=== PATIENT | female | born 1980 | race Caucasian/White ===

== ENCOUNTER 2017-04-21 03:45 | Inpatient (IN) ==
[2017-04-21] MEDS ORDERED: MOM Conc 10 ML UD.LIQ PO PRN (04:17)
[2017-04-21] MEDS ORDERED: *HR* LORazepam 2 MG/ML VIAL IM PRN (04:17)
[2017-04-21] MEDS ORDERED: Ibuprofen 400 MG TABLET PO PRN (04:17)
[2017-04-21] MEDS ORDERED: Mag Hydrox/Al Hydrox/Simeth 30 ML UDC PO PRN (04:17)
[2017-04-21] MEDS ORDERED: hydrOXYzine pamoate 25 MG CAPSULE PO PRN (04:17)
[2017-04-21] MEDS ORDERED: Haloperidol Lactate 5 MG/ML VIAL IM PRN (04:17)
[2017-04-21] MEDS: cephALEXin 500 MG CAPSULE PO SCH ×2 (08:22→20:53)
--- NOTE | 2017-04-21 09:41 | Psychiatry History & Physical ---
Date of Encounter: 04/21/17 Time of Encounter: 09:00 History of Present Illness Patient Stated Chief Complaint: Psychosis and paranoia Medicare Admission Attestation: For traditional Medicare patients the provided hospital inpatient services are reasonable and necessary and in the case of services not specified as inpatient -only under 42 CFR 419.22 (n), that they are appropriately provided as inpatient services in accordance 42 CFR 412.3. For Critical Access Hospital the patient may reasonably be expected to be discharged or transferred to a hospital within 96 hours after admission to the Critical Access Hospital. Admitted From: Hospital to Hospital Transfer ([facility]) History of Present Illness: Ms. Bolivar is a 37 year old female admitted from [facility] in [place] for psychosis and paranoia and agitation. From the records patient was agitated and paranoid and delusional at home and took her to the hospital for evaluation. She had history of schizophrenia and bipolar and has not been taking medication for last several months and did not attend any outpatient follow-up for several months. She had previous hospitalization for similar episodes in the last 2 years. UDS was negative and labs were unremarkable. Patient delusion and paranoia are focused on governments and she believes that someone is trying to control her mind and make her hallucinate. Her speech was disorganized and incoherent at time, it was very difficult to understand her stories and speech. Past Med Surg Social Fam HX - Past Psychiatric History Psychiatric history: Reports: bipolar, schizophrenia, previous psychiatric hospitalization Medications & Allergies cephALEXin [Cephalexin] 500 mg PO BID 04/21/17 [History] Allergies No Known Allergies Allergy (Verified 04/21/17 04:14) Review of Systems Psychiatric: Reports: auditory hallucinations, visual hallucinations, other ( Paranoid delusions) Mental Status Exam Patient orientation: Yes Person, Yes Time, Yes Place Level of alertness: Alert Patient appearance: Appropriate, Well Groomed, Obese Behavior: calm, cooperative, suspicious, talkative Psychomotor activity: Normal Eye contact: Maintains Eye Contact Mood description: Anxious, Labile, Irritable Affect description: congruent with mood, labile, anxious Speech pattern: Disorganized, Rambling, Excessive, Pressured, Other (Incoherent) Speech volume: Normal Thought process: Loose Associations, Flight of Ideas, Disorganized Thought content: No Suicidal ideation, No Homicidal ideation, Yes Overt delusions, Yes Ideas of reference, Yes Paranoid delusion Perceptual disturbances: Yes Reacting to internal stimuli, Yes Auditory hallucinations, Yes Visual hallucinations Attention span: Unable to Focus Memory description: Immediate Impaired, Recent Impaired, Remote Impaired Patient reliability: Not Reliable Historian Intelligence estimate: Average Judgment: Limited Insight: Partial Results - Vital Signs Vital signs: Temp Pulse Resp BP 98.0 F 105 20 149/100 04/21/17 09:00 04/21/17 09:00 04/21/17 09:00 04/21/17 09:00 Assessment and Plan (1) Unspecified psychosis Current visit: Yes Status: Acute Plan: Admit inpatient for safety and stabilization, Close observation, Suicide Precautions per unit protocol, Encourage participation in unit milieu, Group Therapy, Monitor sleep, Monitor appetite Additional Plan: Restart patient on Abilify 10 mg daily. Benefits and side effects were explained to patient, she is agreeable to start. Risks, benefits, side effects, alternatives discussed w/pt: Yes Patient agreeable to treatment: Yes Estimated Length of Stay (Days): 5 Qualifiers: Psychosis type: schizophrenia Schizophrenia type: paranoid schizophrenia Qualified Code(s): F20.0 - Paranoid schizophrenia
[2017-04-21] MEDS: ARIPiprazole 10 MG TABLET PO SCH (10:05)
[2017-04-22] MEDS: cephALEXin 500 MG CAPSULE PO SCH ×2 (08:25→21:12)
[2017-04-22] MEDS: ARIPiprazole 10 MG TABLET PO SCH ×2 (08:25→21:12)
--- NOTE | 2017-04-22 11:22 | Psychiatry Progress Note ---
Date of Encounter: 04/22/17 Time of Encounter: 11:00 Subjective Interval history: Patient is seen for follow-up with nursing staff. Staff report she is medication compliant, seclusive to her room. No reports of agitation. She continue with therapy paranoid and delusional and her speech is incoherent and disorganized. She repeats certain words like hallucination, locked up, hostage , sister's jealous. Nursing staff contacted the mother and she indicated that she was a garden of the patient in the past few years but she does not have a document and planning to obtain a copy from the [facility]. This may help establishing treatments with injectables. Patient is declining any treatment that included shots. Review of Systems Psychiatric: Reports: auditory hallucinations, visual hallucinations, other ( Paranoid delusions) Objective: Exam Patient orientation: Yes Person, Yes Time, Yes Place Level of alertness: Alert Patient appearance: Appropriate, Well Groomed Behavior: calm, cooperative, uncooperative, suspicious Psychomotor activity: Normal Eye contact: Fleeting Contact Mood description: Angry, Anxious, Labile, Irritable Affect description: labile, incongruent with mood Speech pattern: Normal rate, Normal rhythm, Normal tone, Garbled, Pressured Speech volume: Normal Thought process: Loose Associations, Flight of Ideas, Thought Blocking, Disorganized Thought content: No Suicidal ideation, No Homicidal ideation, Yes Overt delusions, Yes Ideas of reference, Yes Preoccupation, Yes Paranoid delusion Perceptual disturbances: Yes Reacting to internal stimuli, No Auditory hallucinations, No Visual hallucinations Judgment: Fair Insight: Partial Results - Vital Signs Vital Signs: Temp Pulse Resp BP 98 F 109 20 148/100 04/22/17 09:00 04/22/17 09:00 04/22/17 09:00 04/22/17 09:00 Assessment and Plan (1) Unspecified psychosis Current visit: Yes Status: Acute Plan: Continue hospitalization, Close observation, Suicide Precautions per unit protocol, Encourage participation in unit milieu, Group Therapy, Monitor sleep, Monitor appetite Risks, benefits, side effects, alternatives discussed w/pt: Yes Patient agreeable to treatment: Yes Qualifiers: Psychosis type: schizophrenia Schizophrenia type: paranoid schizophrenia Qualified Code(s): F20.0 - Paranoid schizophrenia (2) Unspecified psychosis Current visit: Yes Status: Acute Plan: Continue hospitalization, Close observation, Suicide Precautions per unit protocol, Encourage participation in unit milieu, Group Therapy, Monitor sleep, Monitor appetite Additional Plan: We will increase Abilify to 10 mg twice a day. reduce Seroquel to 100 mg at bedtime Risks, benefits, side effects, alternatives discussed w/pt: Yes Patient agreeable to treatment: No Qualifiers: Psychosis type: schizophrenia Schizophrenia type: paranoid schizophrenia Qualified Code(s): F20.0 - Paranoid schizophrenia Consult Discharge Plan - Plan Referrals: NO,PCP [Primary Care Provider] -
[2017-04-23] MEDS: cephALEXin 500 MG CAPSULE PO SCH ×2 (08:34→20:11)
[2017-04-23] MEDS: ARIPiprazole 10 MG TABLET PO SCH ×2 (08:34→20:11)
--- NOTE | 2017-04-23 15:29 | Psychiatry Progress Note ---
Date of Encounter: 04/23/17 Time of Encounter: 15:00 Subjective Interval history: Patient is seen for follow-up with the nursing staff. She continued to display disorganized incoherent speech, she looks irritable and she repeats certain words related to her sister and being locked up and her father. She is compliant with medication and her sleep and appetite are adequate. She self isolated. tobacco farmworker is trying to verify guardianship papers received from the patient and mother. Review of Systems Psychiatric: Reports: auditory hallucinations, visual hallucinations, other ( Paranoid delusions) Objective: Exam Patient orientation: Yes Person, Yes Time, Yes Place Level of alertness: Alert Patient appearance: Appropriate, Well Groomed, Obese Behavior: anxious, uncooperative, suspicious, distractible Psychomotor activity: Increased Eye contact: Minimal Contact Mood description: Anxious, Labile, Irritable Affect description: congruent with mood, labile Speech pattern: Disorganized, Garbled, Pressured Speech volume: Normal Thought process: Tangential, Flight of Ideas, Thought Blocking, Disorganized, Perseveration Thought content: No Suicidal ideation, No Homicidal ideation, Yes Overt delusions, Yes Paranoid delusion Perceptual disturbances: Yes Reacting to internal stimuli, No Auditory hallucinations, No Visual hallucinations Judgment: Fair Insight: Partial Results - Vital Signs Vital Signs: Temp Pulse Resp BP 97.4 F L 91 18 169/91 04/23/17 09:00 04/23/17 09:00 04/23/17 09:00 04/23/17 09:00 Assessment and Plan (1) Unspecified psychosis Current visit: Yes Status: Acute Plan: Continue hospitalization, Close observation, Suicide Precautions per unit protocol, Encourage participation in unit milieu, Group Therapy, Monitor sleep, Monitor appetite Risks, benefits, side effects, alternatives discussed w/pt: Yes Patient agreeable to treatment: Yes Qualifiers: Psychosis type: schizophrenia Schizophrenia type: paranoid schizophrenia Qualified Code(s): F20.0 - Paranoid schizophrenia (2) Unspecified psychosis Current visit: Yes Status: Acute Plan: Continue hospitalization, Close observation, Suicide Precautions per unit protocol, Encourage participation in unit milieu, Group Therapy, Monitor sleep, Monitor appetite Risks, benefits, side effects, alternatives discussed w/pt: Yes Patient agreeable to treatment: No Qualifiers: Psychosis type: schizophrenia Schizophrenia type: paranoid schizophrenia Qualified Code(s): F20.0 - Paranoid schizophrenia Consult Discharge Plan - Plan Referrals: NO,PCP [Primary Care Provider] -
[2017-04-24] MEDS: ARIPiprazole 10 MG TABLET PO SCH ×2 (08:58→20:45)
[2017-04-24] MEDS: cephALEXin 500 MG CAPSULE PO SCH ×2 (08:58→20:45)
--- NOTE | 2017-04-24 15:52 | Psychiatry Progress Note ---
Date of Encounter: 04/24/17 Time of Encounter: 15:00 Subjective Interval history: Patient is seen for follow-up with the nursing staff. She is isolating herself. Compliant with medication. Continue to be paranoid and delusional, speech is disorganized. She believes she is held hostage in the hospital. No guardianship document was found as of now. Received some records from previous hospitalization to review. It will be necessary to request a court hearing for probable cause to continue stabilization. Review of Systems Psychiatric: Reports: auditory hallucinations, visual hallucinations, other ( Paranoid delusions) Objective: Exam Patient orientation: Yes Person, Yes Time, Yes Place Level of alertness: Alert Patient appearance: Appropriate, Well Groomed Behavior: cooperative, uncooperative, guarded, suspicious Psychomotor activity: Increased Eye contact: Minimal Contact Mood description: Angry, Anxious, Labile, Irritable Affect description: congruent with mood, labile Speech pattern: Normal rate, Normal rhythm, Normal tone, Disorganized, Garbled Speech volume: Normal Thought process: Linear, Goal Oriented Thought content: No Suicidal ideation, No Homicidal ideation, No Overt delusions Perceptual disturbances: Yes Reacting to internal stimuli, No Auditory hallucinations, No Visual hallucinations Judgment: Fair Insight: Partial Results - Vital Signs Vital Signs: Temp Pulse Resp BP 97.4 F L 16 16 142/92 04/24/17 10:05 04/24/17 10:05 04/24/17 10:05 04/24/17 10:05 Assessment and Plan (1) Unspecified psychosis Current visit: Yes Status: Acute Risks, benefits, side effects, alternatives discussed w/pt: Yes Patient agreeable to treatment: Yes Qualifiers: Psychosis type: schizophrenia Schizophrenia type: paranoid schizophrenia Qualified Code(s): F20.0 - Paranoid schizophrenia Consult Discharge Plan - Plan Referrals: Mamie Cárdenas [facility] [place] [Outside]
[2017-04-25] MEDS: ARIPiprazole 10 MG TABLET PO SCH ×2 (08:54→20:54)
[2017-04-25] MEDS: cephALEXin 500 MG CAPSULE PO SCH ×2 (08:54→20:54)
--- NOTE | 2017-04-25 16:20 | Psychiatry Progress Note ---
Date of Encounter: 04/25/17 Time of Encounter: 16:00 Subjective Interval history: Patient is seen for follow-up with the nursing staff. She is calm and cooperative and her speech is clear and coherent. She denies any problem with sleep and she is compliant with medication. high worker reported no documented guardianship is available from the court house. Requests for probable cause hearing was submitted to court to continue hospitalization and stabilization. Nursing staff received information regarding patient medication and changes are made including starting Risperdal and discontinue Seroquel. Also we added some Prilosec and atenolol. This was verified with the patient's and she was agreeable to take this medication. She is not displaying any overt paranoia or agitation. Review of Systems Psychiatric: Reports: auditory hallucinations, visual hallucinations, other ( Paranoid delusions) Objective: Exam Patient orientation: Yes Person, Yes Time, Yes Place Level of alertness: Alert Patient appearance: Appropriate, Well Groomed Behavior: calm, cooperative, guarded, distractible Psychomotor activity: Normal Eye contact: Minimal Contact Mood description: Euthymic/stable, Labile Affect description: congruent with mood, constricted Speech pattern: Normal rate, Normal rhythm, Normal tone, Clear Speech volume: Normal Thought process: Linear, Goal Oriented Thought content: No Suicidal ideation, No Homicidal ideation, No Overt delusions Perceptual disturbances: No Auditory hallucinations, No Visual hallucinations Judgment: Fair Insight: Partial Results - Vital Signs Vital Signs: Temp Pulse Resp BP 98.0 F 88 20 149/95 04/25/17 09:00 04/25/17 09:00 04/25/17 09:00 04/25/17 09:00 Assessment and Plan (1) Unspecified psychosis Current visit: Yes Status: Acute Plan: Continue hospitalization, Close observation, Suicide Precautions per unit protocol, Encourage participation in unit milieu, Group Therapy, Monitor sleep, Monitor appetite Risks, benefits, side effects, alternatives discussed w/pt: Yes Patient agreeable to treatment: Yes Qualifiers: Psychosis type: schizophrenia Schizophrenia type: paranoid schizophrenia Qualified Code(s): F20.0 - Paranoid schizophrenia Consult Discharge Plan - Plan Referrals: Mamie Cárdenas [facility] [place] [Outside]
[2017-04-25] MEDS: RisperiDAL 3 MG TABLET PO SCH (20:54)
[2017-04-26] MEDS: ARIPiprazole 10 MG TABLET PO SCH ×2 (09:40→21:54)
[2017-04-26] MEDS: cephALEXin 500 MG CAPSULE PO SCH ×2 (09:40→21:54)
[2017-04-26] MEDS: RisperiDAL 3 MG TABLET PO SCH (21:54)
[2017-04-26] MEDS: *HR* LORazepam 1 MG TABLET PO PRN (21:54)
--- NOTE | 2017-04-27 08:33 | Psychiatry Progress Note ---
Date of Encounter: 04/26/17 Time of Encounter: 15:30 Subjective Interval history: Patient is here for follow-up with the nursing staff. Staff reports she is self isolating, compliant with medication. Denies any problem with sleep or appetite. Still paranoid and delusional. Speech is disorganized and partially incoherent. Medication are updated and explained to patient. She is scheduled for probable cause hearing next week. Review of Systems Psychiatric: Reports: auditory hallucinations, visual hallucinations, other ( Paranoid delusions) Objective: Exam Patient orientation: Yes Person, Yes Time, Yes Place Level of alertness: Alert Patient appearance: Appropriate, Unkempt, Obese Behavior: calm, cooperative, anxious, suspicious Psychomotor activity: Normal Eye contact: Minimal Contact Mood description: Angry, Anxious, Labile, Irritable Affect description: congruent with mood, labile, constricted Speech pattern: Normal rate, Normal rhythm, Normal tone, Disorganized, Garbled Speech volume: Normal Thought process: Linear, Goal Oriented, Flight of Ideas, Thought Blocking, Disorganized Thought content: No Suicidal ideation, No Homicidal ideation, No Overt delusions , Yes Paranoid delusion Perceptual disturbances: Yes Auditory hallucinations, No Visual hallucinations Judgment: Fair Insight: Partial Results - Vital Signs Vital Signs: Temp Pulse Resp BP 98.2 F 77 22 138/79 04/26/17 20:21 04/26/17 20:21 04/26/17 20:21 04/26/17 20:21 Assessment and Plan (1) Unspecified psychosis Current visit: Yes Status: Acute Plan: Continue hospitalization, Close observation, Suicide Precautions per unit protocol, Encourage participation in unit milieu, Group Therapy, Monitor sleep, Monitor appetite Risks, benefits, side effects, alternatives discussed w/pt: Yes Patient agreeable to treatment: Yes Qualifiers: Psychosis type: schizophrenia Schizophrenia type: paranoid schizophrenia Qualified Code(s): F20.0 - Paranoid schizophrenia Consult Discharge Plan - Plan Referrals: Mamie Cárdenas [facility] [place] [Outside]
[2017-04-27] MEDS: cephALEXin 500 MG CAPSULE PO SCH ×2 (09:06→20:07)
[2017-04-27] MEDS: ARIPiprazole 10 MG TABLET PO SCH ×2 (09:06→20:07)
--- NOTE | 2017-04-27 14:36 | Psychiatry Progress Note ---
Date of Encounter: 04/27/17 Time of Encounter: 14:00 Subjective Interval history: Patient is seen for follow-up with the nursing staff. Staff reports she continue to be self isolating in her room, suspicious and paranoid and avoiding interaction with peers and staff. She is compliant with medication, she is improving less irritable and less delusional. Her speech continues to be disorganized and partially and coherent. Review of Systems Psychiatric: Reports: auditory hallucinations, visual hallucinations, other ( Paranoid delusions) Objective: Exam Patient orientation: Yes Person, Yes Time, Yes Place Level of alertness: Alert Patient appearance: Appropriate, Unkempt, Obese Behavior: calm, cooperative, guarded, suspicious Psychomotor activity: Normal Eye contact: Avoids Eye Contact Mood description: Anxious, Labile Affect description: congruent with mood, labile Speech pattern: Normal rate, Normal rhythm, Normal tone, Disorganized, Garbled, Excessive, Pressured, Repetitive Speech volume: Normal Thought process: Flight of Ideas, Thought Blocking, Disorganized Thought content: No Suicidal ideation, No Homicidal ideation, No Overt delusions Perceptual disturbances: Yes Auditory hallucinations, No Visual hallucinations Judgment: Fair Insight: Partial Results - Vital Signs Vital Signs: Temp Pulse Resp BP 97.8 F 73 18 122/80 04/27/17 09:00 04/27/17 09:00 04/27/17 09:00 04/27/17 09:00 - Labs Labs: Laboratory Results - last 24 hr 04/27/17 10:29 TSH 1.358 Assessment and Plan (1) Unspecified psychosis Current visit: Yes Status: Acute Plan: Continue hospitalization, Close observation, Suicide Precautions per unit protocol, Encourage participation in unit milieu, Group Therapy, Monitor sleep, Monitor appetite Risks, benefits, side effects, alternatives discussed w/pt: Yes Patient agreeable to treatment: Yes Qualifiers: Psychosis type: schizophrenia Schizophrenia type: paranoid schizophrenia Qualified Code(s): F20.0 - Paranoid schizophrenia Consult Discharge Plan - Plan Referrals: Mamie Cárdenas [facility] [place] [Outside] (To establish in services, you may walk -in any Sunday through Sunday from 8:00am 12:00pm or 1:00pm 4:00pm. Your case will be opened, and you will be scheduled to see a counselor and psychiatric prescriber. Please bring your insurance card, photo ID and medication list. )
[2017-04-27] MEDS: *HR* LORazepam 1 MG TABLET PO PRN ×2 (16:20→20:07)
[2017-04-27] MEDS: RisperiDAL 3 MG TABLET PO SCH (20:07)
[2017-04-28] MEDS: cephALEXin 500 MG CAPSULE PO SCH ×2 (08:41→20:34)
[2017-04-28] MEDS: ARIPiprazole 10 MG TABLET PO SCH ×2 (08:41→20:34)
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
[2017-04-28] MEDS: *HR* LORazepam 1 MG TABLET PO PRN (20:34)
[2017-04-28] MEDS: RisperiDAL 3 MG TABLET PO SCH (20:34)
[2017-04-28] MEDS: traZODone 50 MG TABLET PO PRN (20:34)
[2017-04-29] MEDS: cephALEXin 500 MG CAPSULE PO SCH ×2 (08:26→20:14)
[2017-04-29] MEDS: ARIPiprazole 10 MG TABLET PO SCH ×2 (08:26→20:14)
--- NOTE | 2017-04-29 13:04 | Psychiatry Progress Note ---
Date of Encounter: 04/29/17 Time of Encounter: 13:00 Subjective Interval history: Albina is seen today for follow-up. She reports that she is worried about not being able to pay her rent. She does not have an issue with any of the medications but is not understanding why she is still here. She is actively thought blocking during the interview and very disorganized at times. She does seem to be less agitated than on her initial presentation and she is able to come out of her room to eat. I did encourage the patient to shower today. Currently compliant with medications. Review of Systems Psychiatric: Reports: auditory hallucinations, visual hallucinations, irritability, other (Paranoid delusions). Denies: suicidal ideation Objective: Exam Patient orientation: Yes Person, Yes Place, Yes Circumstance Level of alertness: Alert Patient appearance: Disheveled Behavior: guarded, suspicious Psychomotor activity: Normal Eye contact: Minimal Contact Mood description: Euthymic/stable Affect description: blunted Speech pattern: Slowed Speech volume: Normal Thought process: Disorganized, Slowed Thinking Thought content: No Suicidal ideation, No Homicidal ideation, Yes Thought insertion Perceptual disturbances: Yes Reacting to internal stimuli, Yes Auditory hallucinations Judgment: Poor Insight: None Results - Vital Signs Vital Signs: Temp Pulse Resp BP 97.2 F L 75 20 123/76 04/29/17 08:45 04/29/17 08:45 04/29/17 08:45 04/29/17 08:45 Assessment and Plan (1) Psychosis Current visit: Yes Status: Acute Plan: Continue hospitalization, Close observation, Suicide Precautions per unit protocol, Encourage participation in unit milieu, Group Therapy, Monitor sleep, Monitor appetite Additional Plan: Continue current meds. Patient's agitation is less. We will continue to monitor to see if she improves. Consider tapering Risperdal or Abilify and increasing the other medication depending on improvement. Risks, benefits, side effects, alternatives discussed w/pt: Yes Patient agreeable to treatment: Yes Qualifiers: Psychosis type: unspecified psychosis type Qualified Code(s): F29 - Unspecified psychosis not due to a substance or known physiological condition Consult Discharge Plan - Plan Referrals: Mamie Cárdenas [facility] [place] [Outside] (To establish in services, you may walk -in any Sunday, Sunday or from 8:00am 12:00pm or 1:00pm 4:00pm. Your case will be opened, and you will be scheduled to see a counselor and psychiatric prescriber. Please bring your insurance card, social security number, photo ID and medication list. )
[2017-04-29] MEDS: RisperiDAL 3 MG TABLET PO SCH (20:13)
[2017-04-29] MEDS: traZODone 50 MG TABLET PO PRN (20:14)
[2017-04-29] MEDS: *HR* LORazepam 1 MG TABLET PO PRN (20:14)
[2017-04-29] MEDS: hydrOXYzine pamoate 25 MG CAPSULE PO PRN (20:14)
[2017-04-30] MEDS: ARIPiprazole 10 MG TABLET PO SCH ×2 (08:27→20:39)
[2017-04-30] MEDS: cephALEXin 500 MG CAPSULE PO SCH ×2 (08:27→20:40)
--- NOTE | 2017-04-30 14:25 | Psychiatry Progress Note ---
Date of Encounter: 04/30/17 Time of Encounter: 14:00 Subjective Interval history: Patient is here for follow-up with the nursing staff. Staff reports she is spending her time in her room by herself, she was observed talking to self loudly and seemed to be internally stimulated. She is compliant with medication. Her speech continued to be disorganized and garbled. Discussed with the treatment team that on discharge she will need case management and other support resources to ensure compliance with treatment. Review of Systems Psychiatric: Reports: auditory hallucinations, visual hallucinations, irritability, other (Paranoid delusions). Denies: suicidal ideation Objective: Exam Patient orientation: Yes Person, Yes Time, Yes Place Level of alertness: Alert Patient appearance: Appropriate, Well Groomed Behavior: calm, cooperative, tearful, suspicious Psychomotor activity: Normal Eye contact: Minimal Contact Mood description: Euthymic/stable, Depressed, Anxious Affect description: congruent with mood, constricted Speech pattern: Normal rate, Normal rhythm, Normal tone, Disorganized, Garbled Speech volume: Normal Thought process: Linear, Goal Oriented, Flight of Ideas, Thought Blocking, Disorganized Thought content: No Suicidal ideation, No Homicidal ideation, No Overt delusions Perceptual disturbances: Yes Reacting to internal stimuli, No Auditory hallucinations, No Visual hallucinations Judgment: Fair Insight: Partial Results - Vital Signs Vital Signs: Temp Pulse Resp BP 97.0 F L 77 16 134/80 04/30/17 09:00 04/30/17 09:00 04/30/17 09:00 04/30/17 09:00 Assessment and Plan (1) Unspecified psychosis Current visit: Yes Status: Acute Plan: Continue hospitalization, Close observation, Suicide Precautions per unit protocol, Encourage participation in unit milieu, Group Therapy, Monitor sleep, Monitor appetite Risks, benefits, side effects, alternatives discussed w/pt: Yes Patient agreeable to treatment: Yes Qualifiers: Psychosis type: schizophrenia Schizophrenia type: paranoid schizophrenia Qualified Code(s): F20.0 - Paranoid schizophrenia Consult Discharge Plan - Plan Referrals: Mamie Cárdenas [facility] [place] [Outside] (To establish in services, you may walk -in any Sunday, Sunday or from 8:00am 12:00pm or 1:00pm 4:00pm. Your case will be opened, and you will be scheduled to see a counselor and psychiatric prescriber. Please bring your insurance card, social security number, photo ID and medication list. )
[2017-04-30] MEDS: Nicotine 2 MG GUM BC PRN (16:56)
[2017-04-30] MEDS: RisperiDAL 3 MG TABLET PO SCH (20:39)
[2017-04-30] MEDS: hydrOXYzine pamoate 25 MG CAPSULE PO PRN (20:39)
[2017-04-30] MEDS: traZODone 50 MG TABLET PO PRN (20:39)
[2017-04-30] MEDS: *HR* LORazepam 1 MG TABLET PO PRN (20:39)
[2017-05-01] MEDS: cephALEXin 500 MG CAPSULE PO SCH (08:25)
[2017-05-01] MEDS: ARIPiprazole 10 MG TABLET PO SCH ×2 (08:25→20:28)
[2017-05-01] MEDS: Venlafaxine XR (24 HR) 75 MG CAP.ER.24H PO SCH (13:06)
--- NOTE | 2017-05-01 14:06 | Psychiatry Progress Note ---
Date of Encounter: 05/01/17 Time of Encounter: 13:45 Subjective Interval history: Patient was seen for follow-up. Staff reports she is displaying depressed mood and tearful at times. She will continue to be internally stimulated and paranoid. She is not agitated. Her speech continued to be garbled. Effexor XR 75 mg was added to her medication benefits and side effects were discussed with the patient and she is agreeable to start. Court hearing for probable cause completed and patient will continue hospitalization to stabilize her on medication. Review of Systems Psychiatric: Reports: auditory hallucinations, visual hallucinations, irritability, other (Paranoid delusions). Denies: suicidal ideation Objective: Exam Patient orientation: Yes Person, Yes Time, Yes Place Level of alertness: Alert Patient appearance: Appropriate, Well Groomed, Obese Behavior: calm, cooperative Psychomotor activity: Normal Eye contact: Fleeting Contact Mood description: Euthymic/stable, Depressed Affect description: congruent with mood, constricted Speech pattern: Normal rate, Normal rhythm, Normal tone, Disorganized, Garbled Speech volume: Normal Thought process: Linear, Goal Oriented, Tangential, Thought Blocking, Disorganized Thought content: No Suicidal ideation, No Homicidal ideation, No Overt delusions , Yes Paranoid delusion Perceptual disturbances: No Auditory hallucinations, No Visual hallucinations Judgment: Fair Insight: Partial Results - Vital Signs Vital Signs: Temp Pulse Resp BP 97.6 F 68 16 132/73 05/01/17 09:00 05/01/17 09:00 05/01/17 09:00 05/01/17 09:00 Assessment and Plan (1) Unspecified psychosis Current visit: Yes Status: Acute Plan: Continue hospitalization, Close observation, Suicide Precautions per unit protocol, Encourage participation in unit milieu, Group Therapy, Monitor sleep, Monitor appetite Additional Plan: We will start Effexor XR 75 mg daily to help patient with depression, benefits and side effects were discussed and we will monitor. Risks, benefits, side effects, alternatives discussed w/pt: Yes Patient agreeable to treatment: Yes Qualifiers: Psychosis type: schizophrenia Schizophrenia type: paranoid schizophrenia Qualified Code(s): F20.0 - Paranoid schizophrenia Consult Discharge Plan - Plan Referrals: Mamie Cárdenas [facility] [place] [Outside] (To establish in services, you may walk -in any Sunday, Sunday or from 8:00am 12:00pm or 1:00pm 4:00pm. Your case will be opened, and you will be scheduled to see a counselor and psychiatric prescriber. Please bring your insurance card, social security number, photo ID and medication list. )
[2017-05-01] MEDS: traZODone 50 MG TABLET PO PRN (20:28)
[2017-05-01] MEDS: hydrOXYzine pamoate 25 MG CAPSULE PO PRN (20:28)
[2017-05-01] MEDS: RisperiDAL 3 MG TABLET PO SCH (20:28)
[2017-05-02] MEDS: Venlafaxine XR (24 HR) 75 MG CAP.ER.24H PO SCH (08:21)
[2017-05-02] MEDS: ARIPiprazole 10 MG TABLET PO SCH ×2 (08:21→20:48)
--- NOTE | 2017-05-02 13:50 | Psychiatry Progress Note ---
Date of Encounter: 05/02/17 Time of Encounter: 13:15 Subjective Interval history: Patient is seen for follow-up with the nursing staff. Staff reports she is coming out of her room and attended some groups but did not participate. She reports good sleep and tolerating medication including Effexor that was added. [place] and affect are brighter, speech is logical more organized. She is not irritable or angry. She is compliant with medication. Review of medication with her and encouraged her to continue treatment after discharge. Discharge planning is ongoing at this time. Review of Systems Psychiatric: Reports: auditory hallucinations, visual hallucinations, irritability, other (Paranoid delusions). Denies: suicidal ideation Objective: Exam Patient orientation: Yes Person, Yes Time, Yes Place Level of alertness: Alert Patient appearance: Appropriate, Well Groomed, Obese Behavior: calm, cooperative Psychomotor activity: Normal Eye contact: Minimal Contact Mood description: Euthymic/stable Affect description: congruent with mood, euthymic, other (Smiling appropriately) Speech pattern: Normal rate, Normal rhythm, Normal tone Speech volume: Normal Thought process: Linear, Goal Oriented, Perseveration Thought content: No Suicidal ideation, No Homicidal ideation, No Overt delusions Perceptual disturbances: No Auditory hallucinations, No Visual hallucinations Judgment: Fair Insight: Partial Results - Vital Signs Vital Signs: Temp Pulse Resp BP 97.5 F L 68 16 135/77 05/02/17 08:37 05/02/17 08:37 05/02/17 08:37 05/02/17 08:37 Assessment and Plan (1) Unspecified psychosis Current visit: Yes Status: Acute Risks, benefits, side effects, alternatives discussed w/pt: Yes Patient agreeable to treatment: Yes Qualifiers: Psychosis type: schizophrenia Schizophrenia type: paranoid schizophrenia Qualified Code(s): F20.0 - Paranoid schizophrenia Consult Discharge Plan - Plan Referrals: Mamie Cárdenas [facility] [place] [Outside] (To establish in services, you may walk -in any Sunday, Sunday or from 8:00am 12:00pm or 1:00pm 4:00pm. Your case will be opened, and you will be scheduled to see a counselor and psychiatric prescriber. Please bring your insurance card, social security number, photo ID and medication list. )
[2017-05-02] MEDS: Nicotine 2 MG GUM BC PRN (17:31)
[2017-05-02] MEDS: hydrOXYzine pamoate 25 MG CAPSULE PO PRN (20:48)
[2017-05-02] MEDS: traZODone 50 MG TABLET PO PRN (20:48)
[2017-05-02] MEDS: RisperiDAL 3 MG TABLET PO SCH (20:48)
[2017-05-03] MEDS: Venlafaxine XR (24 HR) 75 MG CAP.ER.24H PO SCH (08:08)
[2017-05-03] MEDS: ARIPiprazole 10 MG TABLET PO SCH ×2 (08:08→21:29)
--- NOTE | 2017-05-03 13:38 | Psychiatry Progress Note ---
Date of Encounter: 05/03/17 Time of Encounter: 12:30 Subjective Interval history: Patient is seen for follow-up with nursing staff. She denies any problem with sleep or appetite., She denied any side effects of medication. She is anxious to go and take care of housework. She is not displaying any overt psychosis or paranoia. She is not internally stimulated and her speech is more organized. Review of Systems Psychiatric: Reports: auditory hallucinations, visual hallucinations, irritability, other (Paranoid delusions). Denies: suicidal ideation Objective: Exam Patient orientation: Yes Person, Yes Time, Yes Place Level of alertness: Alert Patient appearance: Appropriate, Well Groomed, Obese Behavior: calm, cooperative, guarded Psychomotor activity: Normal Eye contact: Minimal Contact Mood description: Euthymic/stable Affect description: congruent with mood, full range Speech pattern: Normal rate, Normal rhythm, Normal tone, Clear, Limited Speech volume: Normal Thought process: Linear, Goal Oriented, Thought Blocking Thought content: No Suicidal ideation, No Homicidal ideation, No Overt delusions Perceptual disturbances: No Auditory hallucinations, No Visual hallucinations Judgment: Fair Insight: Partial Results - Vital Signs Vital Signs: Temp Pulse Resp BP 97.4 F L 67 18 130/74 05/03/17 09:00 05/03/17 09:00 05/03/17 09:00 05/03/17 09:00 Assessment and Plan (1) Unspecified psychosis Current visit: Yes Status: Acute Plan: Continue hospitalization, Close observation, Suicide Precautions per unit protocol, Encourage participation in unit milieu, Group Therapy, Monitor sleep, Monitor appetite Risks, benefits, side effects, alternatives discussed w/pt: Yes Patient agreeable to treatment: Yes Qualifiers: Psychosis type: schizophrenia Schizophrenia type: paranoid schizophrenia Qualified Code(s): F20.0 - Paranoid schizophrenia Consult Discharge Plan - Plan Referrals: Mamie Cárdenas [facility] [place] [Outside] (To establish in services, you may walk -in any Sunday, Sunday or from 8:00am 12:00pm or 1:00pm 4:00pm. Your case will be opened, and you will be scheduled to see a counselor and psychiatric prescriber. Please bring your insurance card, social security number, photo ID and medication list. )
[2017-05-03] MEDS: traZODone 50 MG TABLET PO PRN (21:29)
[2017-05-03] MEDS: RisperiDAL 3 MG TABLET PO SCH (21:29)
[2017-05-04] MEDS: Venlafaxine XR (24 HR) 75 MG CAP.ER.24H PO SCH (09:21)
[2017-05-04] MEDS: ARIPiprazole 10 MG TABLET PO SCH (09:22)
[2017-05-04 09:35] VITALS: BP 130/74
--- NOTE | 2017-05-04 12:58 | Discharge Summary ---
Date of Encounter: 05/04/17 Time of Encounter: 12:35 Diagnosis - Discharge Diagnosis (1) Unspecified psychosis Status: Acute Qualifiers: Psychosis type: schizophrenia Schizophrenia type: paranoid schizophrenia Qualified Code(s): F20.0 - Paranoid schizophrenia Medications - Discharge Medications Prescriptions: ARIPiprazole [Abilify] 10 mg PO BID #60 tablet Atenolol [Tenormin] 25 mg PO DAILY #30 tablet Levothyroxine [Synthroid] 50 mcg PO 0630 #30 tablet Omeprazole [PriLOSEC] 20 mg PO BIDAC #60 capsule. risperiDONE [RisperDAL] 3 mg PO HS #30 tablet Venlafaxine XR (24 HR) [Effexor XR] 75 mg PO DAILY #30 cap.er.24h ARIPiprazole [Abilify] 10 mg PO BID #60 tablet 05/04/17 [Rx] Atenolol [Tenormin] 25 mg PO DAILY #30 tablet 05/04/17 [Rx] Levothyroxine [Synthroid] 50 mcg PO 0630 #30 tablet 05/04/17 [Rx] Omeprazole [PriLOSEC] 20 mg PO BIDAC #60 capsule. 05/04/17 [Rx] Venlafaxine XR (24 HR) [Effexor XR] 75 mg PO DAILY #30 cap.er.24h 05/04/17 [Rx] risperiDONE [RisperDAL] 3 mg PO HS #30 tablet 05/04/17 [Rx] Allergies No Known Allergies Allergy (Verified 04/21/17 04:14) Results Procedures and tests throughout hospitalization: Completed Lab Orders Category Date Time Status TSH [Thyroid Stimulating Hormone] Routine Lab 04/27/17 10:29 Completed Provider Date of admission: 04/21/17 03:45 Primary care physician: PCP NO Discharging clinician: Star Wilson Assessment and Plan - Patient/Caregiver Discharge Instructions Activity: resume usual activities as tolerated Diet: regular diet - Follow up Plan Follow up with: Mamie Cárdenas [facility] [Outside] (To establish in services, you may walk -in any Sunday, Sunday or from 8:00am 12:00pm or 1:00pm 4:00pm. Your case will be opened, and you will be scheduled to see a counselor and psychiatric prescriber. Please bring your insurance card, social security number, photo ID and medication list. ) Functional capacity at discharge: independent ambulation Overall status at discharge: Stable Disposition: Home, Self-Care Hospital Course Hospital course: Ms. Bolivar is a 37 year old female admitted for exacerbation of schizophrenia with increased paranoia and delusions and noncompliance with medication and inability to care for self. For details admission please see H&P On the units patient was started on Seroquel and Abilify, later Seroquel was tapered off and risperidone was added and then Effexor XL was added. Over her hospital stay patient initially displayed paranoia, delusional behavior, disorganized speech and easy agitation. She was seclusive to her room at all times. She did not participate in activities. Court hearing for probable cause was done to extend patient hospitalization and continue stabilization. Patient started improving she reported improved sleep and appetite, she was more interactive, her ADLs improved. And prior to discharge she became more interactive and attended some group activities. She did not display any overt psychosis she denied hallucination and suicidal ideation. Her discharge plans were completed by psychiatric social worker and psychiatric social worker contacted her family to arrange for her discharge and her care after discharge. On discharge patient was medically stable, there was no evidence of any psychosis or internal stimulation patient did not display any agitation or mood instability she denied any hallucination or suicidal ideation she was anxious to go home and do housecleaning,. - Time Spent with Patient Total time spent providing and/or coordinating discharge services: Greater than 30 minutes Quality - Multiple Antipsychotics Patient discharged on 2 or more antipsychotic medications: Yes - Justification Documentation of: History 3 failed trials of monotherapy Procedures - Procedures Procedures: Medication Management, Crisis Stabilization, Supportive Therapy, Group Therapy, Psychoeducational Therapy Mental Status Exam - Mental Status Exam Patient orientation: Yes Person, Yes Time, Yes Place Level of alertness: Alert Patient appearance: Appropriate, Well Groomed Behavior: calm, cooperative Psychomotor activity: Normal Eye contact: Maintains Eye Contact Mood description: Euthymic/stable Affect description: congruent with mood, full range Speech pattern: Normal rate, Normal rhythm, Normal tone Speech Volume: Normal Thought process: Linear, Goal Oriented Thought Content: No Suicidal ideation, No Homicidal ideation, No Overt delusions Perceptual Disturbances: No Auditory hallucinations, No Visual hallucinations Judgment: Limited Insight: Partial
== END 2017-05-04 20:02 | disposition home or self-care (01) | DRG 750 ==
LOC: 1ANU 03:45
PROVIDERS: ADMIT Psychiatry & Neurology Psychiatry; ATTEND Psychiatry & Neurology Psychiatry